=== PATIENT | female | born 2000 | race Caucasian/White ===

== ENCOUNTER 2024-02-03 23:45 | Inpatient (IN) | payer OTHER ==
[2024-02-04] MEDS: ELECTROLYTE-148 SOLN 1,000 ML IV SCH (00:45)
[2024-02-04 01:00] LABS: BASO % 0.2 % (0-2.0); EOS % 1.2 % (0-4.5); HEMATOCRIT 35.8 % (32.4-45.2); HEMOGLOBIN 11.7 GM/dL (10.7-15.3); LYMPH % 20.5 % (8-40); MCH 27.8 pg (25.7-33.7); MCHC 32.6 g/dl (32.0-36.0); MEAN CELL VOLUME 85.1 fl (80-96); MEAN PLT VOLUME 10.8 fl (7.5-11.1); MONO % 6.7 % (3.8-10.2); NEUT % 71.4 % (42.8-82.8); PLATELET COUNT 108 10^3/uL (134-434); RBC 4.21 M/mm3 (3.60-5.2); RDW 13.9 % (11.6-15.6); WHITE BLOOD COUNT 11.5 K/mm3 (4.0-10.0)
[2024-02-04 01:15] LABS: INR 0.96 (0.83-1.09); PROTHROMBIN TIME (PATIENT) 10.9 SEC (9.7-13.0)
[2024-02-04 01:18] LABS: ACTIVATED PTT 30.6 SECONDS (25.2-36.5)
[2024-02-04 01:22] LABS: POTASSIUM 4.3 mmol/L (3.5-5.1)
[2024-02-04 01:24] LABS: BLOOD UREA NITROGEN 5.2 mg/dL (7-18)
[2024-02-04 01:27] LABS: CREATININE 0.5 mg/dL (0.55-1.3)
[2024-02-04] MEDS ORDERED: AMPICILLIN SODIUM 2 GM VIAL ONE (01:30)
[2024-02-04] MEDS: AMPICILLIN - 2 GM in SODIUM CHLORIDE 100 ML IVPB ONE (01:30)
[2024-02-04 01:41] VITALS: BMI 33.2
[2024-02-04] MEDS ORDERED: OXYTOCIN 20 UNITS in 0.9% NS 20 UNIT/1,000 ML INFUS.BAG IV ONE ×2 (01:49→07:08)
[2024-02-04] MEDS: OXYTOCIN 20 UNITS in 0.9% NS 20 UNIT/1,000 ML INFUS.BAG IV SCH (02:15)
[2024-02-04] MEDS ORDERED: oxyCODONE HCL 5 MG TABLET PO PRN (02:27)
[2024-02-04] MEDS ORDERED: WITCH HAZEL 50% (TUCKS) 40 PAD/JAR PAD TP PRN (02:27)
[2024-02-04] MEDS ORDERED: METHYLERGONOVINE MALEATE 0.2 MG/1 ML AMP IM PRN (02:27)
[2024-02-04] MEDS ORDERED: IBUPROFEN 600 MG TABLET (FP) PO PRN (02:27)
[2024-02-04] MEDS ORDERED: BISACODYL 10 MG SUPP.RECT RC PRN (02:27)
[2024-02-04] MEDS ORDERED: BENZOCAINE 28 GM HEMORRHOIDAL OINTMENT TP PRN (02:27)
[2024-02-04] MEDS ORDERED: BENZOCAINE 20% 57 GM BOTTLE TP PRN (02:27)
[2024-02-04 02:59] LABS: CORD BASE EXCESS -2.1 mmol/L (0-2); CORD HCO3 22.3 mmHg (20-29); CORD PCO2 37.5 mmHg (30-78); CORD pH 7.392 (7.14-7.44)
[2024-02-04 03:20] LABS: CORD BASE EXCESS -1.1 mmol/L (0-2); CORD HCO3 23.3 mmHg (20-29); CORD PCO2 38.4 mmHg (30-78); CORD pH 7.401 (7.14-7.44)
[2024-02-04] MEDS ORDERED: ACETAMINOPHEN 325 MG TABLET (FP) ONE (03:26)
[2024-02-04] MEDS: ACETAMINOPHEN 325 MG TABLET (FP) PO PRN (03:30)
[2024-02-04] MEDS: MEASLES,MUMPS&RUBELLA VACC/PF 0.5 ML VIAL SQ ONE (11:39)
[2024-02-05 08:54] LABS: BASO % 0.3 % (0-2.0); HEMATOCRIT 33.7 % (32.4-45.2); HEMOGLOBIN 11.3 GM/dL (10.7-15.3); LYMPH % 27.7 % (8-40); MCH 28.6 pg (25.7-33.7); MCHC 33.6 g/dl (32.0-36.0); MEAN CELL VOLUME 85.2 fl (80-96); MEAN PLT VOLUME 10.9 fl (7.5-11.1); MONO % 6.8 % (3.8-10.2); NEUT % 63.2 % (42.8-82.8); PLATELET COUNT 95 10^3/uL (134-434); RBC 3.95 M/mm3 (3.60-5.2); RDW 13.6 % (11.6-15.6); WHITE BLOOD COUNT 10.3 K/mm3 (4.0-10.0)
[2024-02-05] MEDS ORDERED: SENNOSIDES/DOCUSATE COMBO (SENNA PLUS) TABLET (UD) PO PRN (22:00)
[2024-02-05 22:27] VITALS: TEMP 98.2
[2024-02-06 10:07] VITALS: BP 104/67; PULSE 73; RESP 17
== END 2024-02-06 13:40 | disposition home or self-care (01) | DRG 560 ==
LOC: JDEL 23:45 → JLDR 02-04 00:30 → J3W 02-04 08:25
PROVIDERS: ADMIT Family Medicine; ATTEND Family Medicine
PROC: 10E0XZZ Delivery of Products of Conception, External Approach (ICD-10-PCS; principal; 2024-02-04)
DX: O80 Encounter for full-term uncomplicated delivery (principal); Z3A.39 39 weeks gestation of pregnancy; Z37.0 Single live birth
CPT/HCPCS: 36415; 36600; 59409; 80048; 82803; 85025; 85610; 85730; 86780; 86850; 86900; 86901